=== PATIENT | female | born 1930 | race African-American/Black ===

== ENCOUNTER 2017-09-30 06:33 | Emergency (ER) | payer MEDICARE ==
[~2017-09-30] VITALS: Ht 149.9 cm; Wt 54.4 kg
[2017-09-30 06:33] VITALS: BP_SYST 146
[2017-09-30] MEDS ORDERED: IRON1CAP17 PO (07:10)
[2017-09-30] MEDS ORDERED: POTA-118 PO (07:10)
[2017-09-30] MEDS ORDERED: HYDR-1115 PO (07:10)
[2017-09-30] MEDS ORDERED: LEVO75TA7 PO (07:10)
[2017-09-30] MEDS ORDERED: ATEN-41 PO (07:10)
[2017-09-30] MEDS ORDERED: CAL1TABL5 PO (07:10)
[2017-09-30] MEDS ORDERED: ONDANSETRON HCL 4 MG/2 ML VIAL IVP ONE (07:30)
[2017-09-30 07:31] LABS: HEMATOCRIT 27.4 % (36-48); HEMOGLOBIN 9.1 g/dL (12.0-16.0); MEAN CORPUSCULAR HEMOGLOBIN 28 pg (27-31); MEAN CORPUSCULAR HGB CONC 33 % (32-36); MEAN CORPUSCULAR VOLUME 85 fL (79.0-98.0); PLATELET COUNT (AUTO) 310 K/uL (130-430); RED BLOOD CELL COUNT(AUTO) 3.22 MIL/uL (4.2-6.2); RED CELL DISTRIBUTION WIDTH 12.7 % (9.0-15.0); WHITE BLOOD COUNT (AUTO) 4.8 K/uL (4.8-10.8)
[2017-09-30 08:04] LABS: ALANINE AMINOTRANSFERASE 25 U/L (12-78); ALBUMIN 3.5 g/dL (3.4-4.8); ANION GAP 14 (5-15); ASPARTATE AMINOTRANSFERASE 35 U/L (10-37); CALCIUM 7.9 mg/dL (8.4-11.0); CHLORIDE 86 mmol/L (98-107); CREATININE 1.32 mg/dL (0.55-1.30); GLUCOSE 105 mg/dL (70-99); LIPASE 316 U/L (73-393); POTASSIUM 3.6 mmol/L (3.5-5.1); TOTAL BILIRUBIN 0.6 mg/dL (0.0-1.0); UREA NITROGEN, BLOOD 10 mg/dL (8-21)
[2017-09-30 08:09] LABS: SODIUM SERUM 119 mmol/L (136-145)
[2017-09-30] MEDS ORDERED: NACL 0.9% 1,000 ML IV ONE (08:15)
[2017-09-30 08:18] LABS: BASOPHILS % (MANUAL) 0 % (0-2); EOSINOPHILS % (MANUAL) 1 % (0-7); LYMPHOCYTES % (MANUAL) 34 % (20-46); MONOCYTES % (MANUAL) 9 % (0-11)
[2017-09-30] MEDS ORDERED: KETOROLAC TROMETHAMINE 30 MG VIAL IVP ONE (10:45)
[2017-09-30 12:15] VITALS: BP_SYST 190
== END 2017-09-30 12:15 | disposition short-term general hospital (02) ==
LOC: SED 06:33
DX: E87.1 Hypo-osmolality and hyponatremia (principal); D64.9 Anemia, unspecified; I10 Essential (primary) hypertension; Z85.3 Personal history of malignant neoplasm of breast; Z90.13 Acquired absence of bilateral breasts and nipples; Z88.0 Allergy status to penicillin; Z88.2 Allergy status to sulfonamides; Z88.1 Allergy status to other antibiotic agents; Z88.6 Allergy status to analgesic agent; Z88.8 Allergy status to other drugs, medicaments and biological substances
CPT/HCPCS: 36415; 74000; 80053; 83605; 83690; 85007; 85027; 93005; 96361; 96374; 96375; 99285; J1885; J2405; J7030